=== PATIENT | female | born 1960 ===

== ENCOUNTER 2022-05-28 17:55 | Inpatient (IN) | payer OTHER ==
[2022-05-28 19:51] VITALS: BMI 37.3
[2022-05-28] MEDS ORDERED: MAG HYDROX/AL HYDROX/SIMETH 30 ML UNIT-DOSE CUP PO PRN (22:03)
[2022-05-28] MEDS ORDERED: BISMUTH SUBSALICYLATE 524 MG/30 ML PO PRN (22:03)
[2022-05-28] MEDS ORDERED: BENZONATATE 200 MG CAPSULE PO PRN (22:03)
[2022-05-28] MEDS ORDERED: NICOTINE 10 MG CARTRIDGE (INHALER) IH PRN (22:03)
[2022-05-28] MEDS ORDERED: BENZOCAINE/MENTHOL (CHLORASEPTIC ) LOZENGE MM PRN (22:03)
[2022-05-28] MEDS ORDERED: MELATONIN 5 MG TABLETS PO PRN (22:03)
[2022-05-28] MEDS ORDERED: IBUPROFEN 600 MG TABLET (FP) PO PRN (22:03)
[2022-05-28] MEDS ORDERED: guaiFENesin 600 MG TABLET.ER (FP) PO PRN (22:03)
[2022-05-28] MEDS ORDERED: NALOXONE HCL (KLOXXADO) 8 MG SPRAY NS PRN (22:03)
[2022-05-28] MEDS ORDERED: ONDANSETRON *ODT* 4 MG TABLET SL PRN (22:03)
[2022-05-28] MEDS ORDERED: NICOTINE POLACRILEX 2 MG GUM BUC PRN (22:03)
[2022-05-28] MEDS ORDERED: P-EPHED 60MG/TRIPROLIDI 2.5MG TABLET PO PRN (22:03)
[2022-05-28] MEDS ORDERED: MAGNESIUM HYDROX 2400MG/30ML ORAL SUSPENSION 30 ML CUP PO PRN (22:03)
[2022-05-28] MEDS ORDERED: ACETAMINOPHEN 325 MG TABLET (FP) PO PRN (22:03)
[2022-05-28] MEDS ORDERED: POLYETHYLENE GLYCOL (HEALTHYLAX) 3350 17 GM PACKET PO PRN (22:03)
[2022-05-28] MEDS ORDERED: NALOXONE HCL 0.4 MG/ML VIAL IM PRN (22:03)
[2022-05-28] MEDS ORDERED: LOPERAMIDE HCL 2 MG CAPSULE PO PRN (22:03)
[2022-05-28] MEDS ORDERED: DICYCLOMINE HCL 10 MG CAPSULE PO PRN (22:03)
[2022-05-28] MEDS ORDERED: IBUPROFEN 400 MG TABLET (FP) PO PRN (22:03)
[2022-05-28] MEDS ORDERED: methaDONE HCL 10 MG TABLET (FOR DETOX USE ONLY) PO ONE (22:30)
[2022-05-28] MEDS ORDERED: methaDONE HCL 10 MG TABLET (FOR DETOX USE ONLY) ONE (22:37)
[2022-05-28] MEDS: cloNIDine HCL 0.1 MG TABLET PO PRN (23:52)
[2022-05-29] MEDS: cloNIDine HCL 0.1 MG TABLET PO PRN (09:17)
[2022-05-29 09:56] VITALS: BP 159/86; PULSE 74; RESP 18; TEMP 97.7
[2022-05-29] MEDS ORDERED: PRENATAL VITAMINS W/ FOLIC ACID TABLET (FP) PO SCH (10:00)
[2022-05-29 11:33] LABS: HEMATOCRIT 36.7 % (32.4-45.2); HEMOGLOBIN 12.4 GM/dL (10.7-15.3); MCH 31.4 pg (25.7-33.7); MCHC 33.8 g/dl (32.0-36.0); MEAN CELL VOLUME 92.9 fl (80-96); MEAN PLT VOLUME 9.9 fl (7.5-11.1); PLATELET COUNT 207 10^3/uL (134-434); RBC 3.95 M/mm3 (3.60-5.2); RDW 14.1 % (11.6-15.6); WHITE BLOOD COUNT 9.5 K/mm3 (4.0-10.0)
[2022-05-29 11:40] LABS: ALBUMIN 3.5 g/dl (3.4-5.0); CALCIUM 9.4 mg/dL (8.5-10.1)
[2022-05-29 11:41] LABS: BLOOD UREA NITROGEN 22.2 mg/dL (7-18)
[2022-05-29 11:44] LABS: BILIRUBIN,TOTAL 1.1 mg/dL (0.2-1); TOT PROT 8.1 g/dl (6.4-8.2)
[2022-05-29] MEDS ORDERED: THIAMINE HCL 100 MG TABLET (FP) PO SCH (22:00)
[2022-05-30] MEDS ORDERED: methaDONE HCL 10 MG TABLET (FOR DETOX USE ONLY) PO ONE (10:00)
[2022-06-01] MEDS ORDERED: methaDONE HCL 10 MG TABLET (FOR DETOX USE ONLY) PO ONE (10:00)
== END 2022-05-29 14:33 | disposition left against medical advice (07) | DRG 770 ==
LOC: YASAS 17:55 → Y6N 23:17
PROVIDERS: ADMIT Allergy & Immunology; ATTEND Surgery
PROC: HZ2ZZZZ Detoxification Services for Substance Abuse Treatment (ICD-10-PCS; principal; 2022-05-28)
DX: F11.23 Opioid dependence with withdrawal (principal); F17.210 Nicotine dependence, cigarettes, uncomplicated; F19.280 Other psychoactive substance dependence with psychoactive substance-induced anxiety disorder; F19.282 Other psychoactive substance dependence with psychoactive substance-induced sleep disorder; F32.A Depression, unspecified; I10 Essential (primary) hypertension; J45.909 Unspecified asthma, uncomplicated
CPT/HCPCS: 36415; 80053; 85027; 86780; 93005; 93010